=== PATIENT | male | born 1970 | race Caucasian/White ===

== ENCOUNTER 2016-09-30 21:56 | Emergency (ER) | payer SELFPAY ==
[2015-11-28 17:56] VITALS: BP 201/105
[~2016-09-30] VITALS: Ht 182.9 cm; Wt 2.7 kg
[2016-09-30] MEDS ORDERED: TRAM50TA PO (22:25)
[2016-09-30] MEDS ORDERED: IBUP-1060 PO (22:25)
--- NOTE | 2016-09-30 22:26 | PHYS DOC ---
Past Medical History Past Medical History: Hypertension Additional Past Medical Histor: spinal stenosis, bulging disc Past Surgical History: No Surgical History Additional Past Surgical Histo: hernia Alcohol Use: Occasionally Drug Use: Marijuana Adult General Chief Complaint Chief Complaint: KNEE INJURY [facility] HPI Patient is a 46 year old male presents to the emergency department with complaints of right medial knee pain. He states he was in the yard playing with water balloons with his children when he slipped and he describes a valgus stress maneuver. States he had immediate onset of right knee pain. He states he has been ambulatory right lower extremity since incident. Right hip and right ankle exam unremarkable. Review of Systems Review of Systems Constitutional: Denies fever or chills [] Eyes: Denies change in visual acuity, redness, or eye pain [] HENT: Denies nasal congestion or sore throat [] Respiratory: Denies cough or shortness of breath [] Cardiovascular: No additional information not addressed in HPI [] GI: Denies abdominal pain, nausea, vomiting, bloody stools or diarrhea [] : Denies dysuria or hematuria [] Musculoskeletal: Left knee pain Integument: Denies rash or skin lesions [] Neurologic: Denies headache, focal weakness or sensory changes [] Endocrine: Denies polyuria or polydipsia [] Allergies Allergies Allergies Coded Allergies Type Severity Reaction Last Updated Verified No Known Drug Allergies 07/20/14 No Physical Exam Physical Exam Constitutional: Well developed, well nourished, no acute distress, non-toxic appearance. [] Neck: Normal range of motion, no midline or cervical tenderness, supple, no stridor. [] Cardiovascular:Heart rate regular rhythm, no murmur [] Lungs & Thorax: Bilateral breath sounds clear to auscultation [] Skin: Warm, dry, no erythema, no rash. [] Back: No tenderness, no CVA tenderness. [] Extremities: Right lower extremity exam, right hip and left ankle exam unremarkable. Right knee, no swelling, no ecchymosis. He does have tenderness upon pain over the medial collateral ligament. He does have as laxity with valgus stress maneuver. Norvasc intact distally. Neurologic: Alert and oriented X 3, normal motor function, normal sensory function, no focal deficits noted. [] Psychologic: Affect normal, judgement normal, mood normal. [] Current Patient Data Vital Signs Vital Signs Date Time Temp Pulse Resp B/P (MAP) Pulse Ox O2 Delivery O2 Flow Rate FiO2 09/30/16 22:09 98.5 95 18 182/98 (126) 99 Room Air 98.5 EKG EKG [] Radiology/Procedures Radiology/Procedures [] Course & Med Decision Making Course & Med Decision Making Patient declined a plain film x-ray. I did discuss with him the possibility of fracture. He continued to decline having an x-ray done stating that he had no insurance. He reports that he does not plan to follow-up once he leaves the emergency department as he has no access to healthcare. I did discuss with him options for clinics for the [place] and the area, he stated he was familiar with this but still could not utilize those as an option. Patient did decline a pain injection in the emergency department. Plan will be to immobilize the right knee , provide pain medications. Patient will sign out AGAINST MEDICAL ADVICE from the emergency department. Dragon Disclaimer Dragon Disclaimer This electronic medical record was generated, in whole or in part, using a voice recognition dictation system. Departure Departure Impression: Primary Impression: Right knee pain Disposition: 01 HOME, SELF-CARE Condition: STABLE Referrals: NO PCP (PCP) CARRIE MANZANARES MD [facility] [place] Patient Instructions: Knee Immobilization Scripts Ibuprofen (IBUPROFEN) 800 Mg Tablet 800 MG PO PRN Q6HRS Y for INFLAMMATION, #20 TAB Prov: JASON TYLER APRN 09/30/16 Tramadol Hcl (TRAMADOL HCL) 50 Mg Tablet 50 MG PO DAILY Y for PAIN, #20 TAB 0 Refills Prov: JASON TYLER APRN 09/30/16 Problem Qualifiers Primary Impression: Right knee pain Chronicity: acute Qualified Codes: M25.561 - Pain in right knee JASON TYLER APRN Sep 30, 2016 22:26
[2016-09-30] MEDS ORDERED: ACETAMINOPHEN/CODEINE 300/30MG TABLET. PO ONE (22:30)
== END 2016-09-30 23:01 | disposition home or self-care (01) ==
LOC: ER 21:56
DX: M25.561 Pain in right knee (principal); I10 Essential (primary) hypertension; F12.10 Cannabis abuse, uncomplicated; W01.0XXA Fall on same level from slipping, tripping and stumbling without subsequent striking against object, initial encounter; Y93.89 Activity, other specified; Y99.8 Other external cause status; Y92.89 Other specified places as the place of occurrence of the external cause
CPT/HCPCS: 29505; 99283-25

== ENCOUNTER 2019-04-22 15:59 | Emergency (ER) | payer BC ==
[~2019-04-22] VITALS: Ht 182.9 cm; Wt 93.3 kg
[~2019-04-22 15:59] MED LIST: IBUP-1060 PO; TRAM50TA PO
[2019-04-22 16:20] VITALS: BP 221/100
[2019-04-22] MEDS ORDERED: HYDROcodone/APAP 5/325MG 1 TAB TABLET PO ONE (16:45)
[2019-04-22] MEDS ORDERED: PENI500T PO (17:07)
[2019-04-22] MEDS ORDERED: ACET-704 PO (17:07)
[2019-04-22] MEDS ORDERED: NAPR-514 PO (17:07)
--- NOTE | 2019-04-22 17:08 | PHYS DOC ---
Past Medical History Past Medical History: Hypertension, Other Additional Past Medical Histor: spinal stenosis, bulging disc,DDD Additional Past Surgical Histo: hernia Smoking Status: Former Smoker Alcohol Use: Occasionally Drug Use: Marijuana (quit using on 03/07/19) Adult General Chief Complaint Chief Complaint: DENTAL PROBLEM HPI HPI Patient is a 48 year old male who presents to the emergency department with co mplaints of pain in his front right tooth for the last 2 days. He states that 2 days ago he was chewing his fingernails and felt something crunch tooth #8. He states he has previously had a root canal in the same tooth. He denies any fever, facial erythema, neck pain, sore throat, or ear pain. He states that yesterday there was a little bit of swelling in his upper lip, he applied ice to the area of swelling has since receded. He currently rates pain 7 out of 10 on pain scale, the pain increases if he tries to bite down or puts any pressure on the tooth. He denies any alleviating factors. Review of Systems Review of Systems All other ROS is negative unless otherwise noted in HPI. Current Medications Current Medications Current Medications Medications (Trade) Dose Ordered Sig/Gris Start Time Stop Time Status Last Admin Dose Admin Acetaminophen/ Hydrocodone Bitart (Lortab 5/325) 1 tab 1X ONCE 04/22/19 16:45 04/22/19 16:50 DC Allergies Allergies Allergies Coded Allergies Type Severity Reaction Last Updated Verified No Known Drug Allergies 07/20/14 No Physical Exam Physical Exam See Above Constitutional: Well developed, well nourished, no acute distress, non-toxic appearance. [] HENT: Normocephalic, atraumatic, bilateral external ears normal, oropharynx moist, no oral exudates, nose normal; cisneros discoloration and fracture line noted to tooth #8, no gingival erythema or visible abscess. Patient reports that the tooth has been discolored since having a root canal.. [] Eyes: PERRLA, EOMI, conjunctiva normal, no discharge. [] Neck: Normal range of motion, no tenderness, supple, no stridor. [] Cardiovascular:Heart rate regular rhythm Lungs & Thorax: Respirations even and unlabored, no retractions, no respiratory distress Skin: Warm, dry, no erythema, no rash. [] Extremities: No cyanosis, ROM intact Neurologic: Alert and oriented X 3, no focal deficits noted. [] Psychologic: Affect normal, judgement normal, mood normal. [] Current Patient Data Vital Signs Vital Signs Date Time Temp Pulse Resp B/P (MAP) Pulse Ox O2 Delivery O2 Flow Rate FiO2 04/22/19 16:20 98.9 84 17 221/100 (140) 98 Room Air 98.9 EKG EKG [] Radiology/Procedures Radiology/Procedures [] Course & Med Decision Making Course & Med Decision Making Pertinent Labs and Imaging studies reviewed. (See chart for details) [] Dragon Disclaimer Dragon Disclaimer This electronic medical record was generated, in whole or in part, using a voice recognition dictation system. Departure Departure Impression: Primary Impression: Dentalgia Additional Impression: Infection of tooth Disposition: HOME, SELF-CARE Condition: STABLE Referrals: NO PCP (PCP) Patient Instructions: Dental Fracture, Dental Pain, [id number] Additional Instructions: Fill prescription(s) and use as directed. Follow up with dentist using the referral list provided. Return to the ER if symptoms worsen. Scripts Acetaminophen With Codeine (TYLENOL WITH CODEINE #3 TABLET) 1 Each Tablet 1 TAB PO PRN Q6HRS PRN for PAIN for 3 Days, #10 TAB 0 Refills Prov: LISSY LAGOS APRN 04/22/19 Naproxen (NAPROXEN) 500 Mg Tablet 1 TAB PO BID PRN for PAIN for 10 Days, #20 TAB 0 Refills Prov: LISSY LAGOS APRN 04/22/19 Penicillin V Potassium (PENICILLIN V POTASSIUM) 500 Mg Tablet 1 TAB PO QID for 10 Days, #40 TAB 0 Refills Prov: LISSY LAGOS APRN 04/22/19 Problem Qualifiers LISSY LAGOS APRN Apr 22, 2019 17:08
== END 2019-04-22 17:21 | disposition home or self-care (01) ==
LOC: ER 15:59
DX: K04.7 Periapical abscess without sinus (principal); K08.89 Other specified disorders of teeth and supporting structures; I10 Essential (primary) hypertension; F12.90 Cannabis use, unspecified, uncomplicated; F17.200 Nicotine dependence, unspecified, uncomplicated; Z98.890 Other specified postprocedural states
CPT/HCPCS: 99283

== ENCOUNTER 2020-08-03 06:58 | Emergency (ER) | payer SELFPAY ==
[~2020-08-03] VITALS: Ht 182.9 cm; Wt 95.0 kg
[~2020-08-03 06:58] MED LIST changes: +ACET-704 PO; +NAPR-514 PO; +PENI500T PO
[2020-08-03] MEDS: KETOROLAC 60 MG/2 ML VIAL. IM ONE (07:33)
[2020-08-03 07:49] LABS: BILIRUBIN,URINE NEGATIVE (NEG); CLARITY,URINE CLEAR; COLOR,URINE YELLOW; NITRITE,URINE NEGATIVE (NEG); PH,URINE 5.5 (<5.0-8.0); PROTEIN,URINE NEGATIVE (NEG-TRACE); UROBILINOGEN,URINE 0.2 mg/dL (0.2 mg/dL)
[2020-08-03 07:59] LABS: BACTERIA,URINE 0 /HPF (0-FEW); RBC,URINE 0 /HPF (0-2); WBC,URINE 0 /HPF (0-4)
[2020-08-03] MEDS ORDERED: CYCL10TA2 PO (08:00)
[2020-08-03] MEDS ORDERED: LIDO1ADH78 TP (08:00)
--- NOTE | 2020-08-03 08:06 | PHYS DOC ---
Past Medical History Past Medical History: Hypertension, Other Additional Past Medical Histor: spinal stenosis, bulging disc,DDD Past Surgical History: No Surgical History Additional Past Surgical Histo: hernia Smoking Status: Former Smoker Alcohol Use: Occasionally Drug Use: Marijuana General Adult EDM: Chief Complaint: BACK PAIN - NO INJURY HPI: HPI: 49-year-old male past medical history of hypertension hyperlipidemia presents the ED with complaints of left-sided low back pain that has been present for more than 15 years stating he used to follow-up at the [facility] but lost his insurance. Reports he was referred to orthopedic surgery interval in [place] that told him he had osteoarthritis of the neck and the lumbar spine and recommended surgery. Reports he is postop surgery January or February 2020 but that he chickened out. Dates last night when he was in a comedy club back pain flared up on the left side described as sharp and radiates to the buttock and down the left leg. Denies any history of trauma, history of IV drug use, history of cancer, history of sciatica, history of malignancy, history of immunocompromise state, neurologic complaints including saddle anesthesia, weakness or paresthesias, urinary retention, bowel or bladder incontinence, nigh t pain, fever/chills/night sweats, unexplained weight loss, anticoagulants or coagulopathy, prolonged steroid use, older age, presence of contusions or abrasions. Reports he takes Aleve [id number] for pain but that meloxicam works better. Was told to stop meloxicam due to being on Norvasc and statin medication. No known history of renal disease. Review of Systems: Review of Systems: Constitutional: Denies fever or chills. [] Eyes: Denies change in visual acuity. [] HENT: Denies nasal congestion or sore throat. [] Respiratory: Denies cough or shortness of breath. [] Cardiovascular: Denies chest pain or edema. [] GI: Denies abdominal pain, nausea, vomiting, bloody stools or diarrhea. [] : Denies dysuria or hematuria Musculoskeletal: Denies midline back pain or CVA tenderness Integument: Denies rash or diaphoresis Neurologic: Denies headache, focal weakness or sensory changes. [] Endocrine: Denies polyuria or polydipsia. [] Lymphatic: Denies swollen glands. [] Psychiatric: Denies depression or anxiety. [] Heart Score: C/O Chest Pain: No Risk Factors: Risk Factors: DM, Current or recent (<one month) smoker, HTN, HLP, family his tory of CAD, obesity. Risk Scores: Score 0 - 3: 2.5% MACE over next 6 weeks - Discharge Home Score 4 - 6: 20.3% MACE over next 6 weeks - Admit for Clinical Observation Score 7 - 10: 72.7% MACE over next 6 weeks - Early Invasive Strategies Current Medications: Current Medications Medications (Trade) Dose Ordered Sig/Gris Start Time Stop Time Status Last Admin Dose Admin Ketorolac Tromethamine (Toradol Im) 30 mg 1X ONCE 08/03/20 07:30 08/03/20 07:31 DC 08/03/20 07:33 30 MG Allergies: Allergies: Allergies Coded Allergies Type Severity Reaction Last Updated Verified No Known Drug Allergies 07/20/14 No Physical Exam: PE: Constitutional: Well developed, well nourished, no acute distress, non-toxic appearance, thin tall healthy appearing male/in no distress HENT: Normocephalic, atraumatic, Eyes: EOMI, conjunctiva normal, no discharge. Neck: Normal range of motion, supple, Cardiovascular: S1/2 present, regular rhythm Lungs & Thorax: Speaking in full sentences, bilateral equal chest rise, no tachypnea or increased work of breathing Abdomen: soft, no tenderness, Skin: Warm, dry, no erythema, no rash. [] Back: No midline tenderness, no CVA tenderness. [] Extremities: No tenderness, no cyanosis, no lower extremity edema Neurologic: Alert and oriented X 3, normal motor function, normal sensory function, no focal deficits noted. [] Psychologic: Affect normal, judgement normal, mood normal. [] Current Patient Data: Vital Signs: Vital Signs Date Time Temp Pulse Resp B/P (MAP) Pulse Ox O2 Delivery O2 Flow Rate FiO2 08/03/20 07:14 98.3 80 16 168/81 (110) 97 Room Air 98.3 EKG: EKG: [] Radiology/Procedures: Radiology/Procedures: [] Course & Med Decision Making: Course & Med Decision Making Pertinent Labs and Imaging studies reviewed. (See chart for details) Well-appearing male presents the ED with acute on chronic back pain reports pain over left SI joint and describes lumbosacral with left-sided sciatica. Has no neurologic deficits. Will prescribe lidocaine patch and muscle relaxers. Will refer to primary care physician or tremors will forward labs/renal testing. Urinalysis with no hematuria or infection. Will discharge home with strict ED return precautions were given for trauma, saddle anesthesia, urine or bowel retention or incontinence or fever. Encouraged urgent outpatient follow-up with PMD and orthopedic surgery neurosurgery for definitive management. Life- threatening processes were considered but are low suspicion at this time, given history, physical exam and ED workup. Pt was educated on all prescription medications and adverse effects. All patient's questions were answered and pt was stable at time of discharge. Life/limb-threatening differential includes but is not limited to, aortic dissection/aneurysm, cauda equina syndrome, transverse myelitis, spinal cord/epidural compression syndromes, discitis, spinal stenosis, epidural abscess or hematoma, osteomyelitis, disc herniation, surgical abdomen, stable or unstab le fracture, renal/ureteral colic, sepsis, meningitis, musculoskeletal injury, traumatic injury, intraabdominal/retroperitoneal or pelvic bleeding. I spoken with the patient and her caregivers. I explained the patient's condition, diagnoses and treatment plan based on the information available to me at this time. I have answered the patient and her caregiver's questions and addressed any concerns. The patient and her caregivers have a good understanding of patient's diagnosis, condition and treatment plan as can be expected at this point. Vital signs have been stable. Patient's condition is stable and appropriate for discharge from the emergency department. Patient will pursue further outpatient evaluation with primary care physician or other designated or consulting physician as outlined in the discharge instructions. The patient and/or caregivers are agreeable to this plan of care and follow-up instructions have been explained in detail. The patient and/or caregivers have received these instructions in written form and have expressed an understanding of the discharge instructions. The patient and/or caregivers are aware that any significant change of condition or worsening of symptoms should prompt immediate return to this or the closest emergency department or call to 911. Naveen Disclaimer: Naveen Disclaimer: This electronic medical record was generated, in whole or in part, using a voice recognition dictation system. Departure Departure Impression: Primary Impression: Chronic low back pain Additional Impression: Sacroiliac joint dysfunction of left side Disposition: HOME / SELF CARE / HOMELESS Condition: STABLE Referrals: NO PCP (PCP) follow up with your pcp or FOLLOW UP WITH FAMILY MEDICINE: [address] [place] [address] Patient Instructions: Back Pain, Adult, Sacroiliac Joint Dysfunction Additional Instructions: FOLLOW UP WITH ORTHOPEDICS: For definitive back management Orthopaedic Sports Medicine [facility] [address], [address] [place] [address] OR [facility] [address] [place] [address] OR FOLLOW UP WITH NEUROSURGERY: Neurological Surgery [facility] [address], [address] [place] [address] EMERGENCY DEPARTMENT GENERAL DISCHARGE INSTRUCTIONS Thank you for coming to [facility] Emergency Department (ED) today and trusting us with you care. We trust that you had a positive experience in our Emergency Department. If you wish to speak to the department management, you may call the Director at [phone]. YOUR FOLLOW UP INSTRUCTIONS ARE FOLLOWS: 1. Do you have a private Doctor? If you do not have a private doctor, please ask for a resource list of physicians or clinics that may be able to assist you with follow up care. 2. The Emergency Physicain has interpreted your x-rays. The X-Ray specialist will also review them. If there is a change in the findings, you will be notified in 48 hours when at all possible. 3. A lab test or culture has been done, your results will be reviewed and you will be notified if you need a change in treatment. ADDITIONAL INSTRUCTIONS AND INFORMATION: 1. Your care today has been supervised by a physician who is specially trained in emergency care. Many problems require more than one evaluation for a complete diagnosis and treatment. We recommend that you schedule your follow up appointment as recommended to ensure complete treatment of you illness or injury. If you are unable to obtain follow up care and continue to have a problem, or if your condition worsens, we recommend that you return to the ED. 2. We are not able to safely determine your condition over the phone nor are we able to give sound medical advice over the phone. For these safety reasons, if you call for medical advice we will ask you to come to the ED for further evaluation. 3. If you have any questions regarding these discharge instructions please call the ED at [phone]. SAFETY INFORMATION: In the interest of safety, wellness, and injury prevention; we encourage you to wear your sealbelt, if you smoke; quite smoking, and we encourage family to use a protective helmet for bicycling and other sporting events that present an increased risk for head injury. IF YOUR SYMPTOMS WORSEN OR NEW SYMPTOMS DEVELOP, OR YOU HAVE CONCERNS ABOUT YOUR CONDITION; OR IF YOUR CONDITION WORSENS WHILE YOU ARE WAITING FOR YOUR FOLLOW UP APPOINTME NT; EITHER CONTACT YOUR PRIMARY CARE DOCTOR, THE PHYSICIAN WHOSE NAME AND NUMBER YOU WERE GIVEN, OR RETURN TO THE ED IMMEDIATELY. Scripts Cyclobenzaprine Hcl (CYCLOBENZAPRINE HCL) 10 Mg Tablet 1 TAB PO TID, #21 TAB Prov: DAVONTE ROMO DO 08/03/20 Lidocaine (Lido Tim) 1 Each Adh..patch 1 EACH TP DAILY for 5 Days, #5 PATCH Apply 1 patch for 12 hours, remove for another 12 hours. May repeat, 1 patch per day as instructed above. Prov: DAVONTE ROMO DO 08/03/20 DAVONTE ROMO DO August 03, 2020 08:06
[2020-08-03 08:15] VITALS: BP 165/81
== END 2020-08-03 08:16 | disposition home or self-care (01) ==
LOC: ER 06:58
DX: G89.29 Other chronic pain (principal); M54.5 Low back pain; M53.3 Sacrococcygeal disorders, not elsewhere classified; I10 Essential (primary) hypertension; Z87.891 Personal history of nicotine dependence
CPT/HCPCS: 81001; 96372; 99283; J1885

== ENCOUNTER 2020-11-19 07:08 | Emergency (ER) | payer SELFPAY ==
[~2020-11-19] VITALS: Ht 182.9 cm; Wt 94.8 kg
[~2020-11-19 07:08] MED LIST changes: +CYCL10TA2 PO; +LIDO1ADH78 TP
[2020-11-19] MEDS ORDERED: PIPERACILLIN/TAZOBACTAM 3.375 GM in IV NORMAL SALINE 50ML 50 ML IV ONE (08:00)
[2020-11-19] MEDS ORDERED: DIPH,PERTUSS(ACELL),TET VAC/PF 0.5 ML SYRINGE. VAX IM ONE (08:00)
[2020-11-19 08:10] LABS: BASO # 0.1 x10^3/uL (0.0-0.2); BASO % 1 % (0-3); EOS # 0.2 x10^3/uL (0.0-0.7); EOS % 2 % (0-3); HEMATOCRIT 46.6 % (39.0-53.0); HEMOGLOBIN 16.3 g/dL (13.0-17.5); LYMPH # 2.4 x10^3/uL (1.0-4.8); LYMPH % 22 % (24-48); MEAN CORPUSCULAR HEMOGLOBIN 30 pg (25-35); MEAN CORPUSCULAR HGB CONC 35 g/dL (31-37); MEAN CORPUSCULAR VOLUME 87 fL (79-100); MONO # 0.9 x10^3/uL (0.0-1.1); MONO % 8 % (0-9); NEUT # 7.4 x10^3/uL (1.8-7.7); NEUT % 67 % (31-73); PLATELET COUNT 186 x10^3/uL (140-400); RED BLOOD COUNT 5.39 x10^6/uL (4.30-5.70); RED CELL DISTRIBUTION WIDTH 12.9 % (11.5-14.5)
--- NOTE | 2020-11-19 08:42 | RAD ---
EXAM: Left hand, 3 views. HISTORY: Trauma. COMPARISON: 03/28/2015. FINDINGS: 3 views of the left hand are obtained. There is no acute fracture, dislocation or subluxati on. No radiodense foreign body is seen. There are suspected small cyst within the distal scaphoid. Th ere is a chronic corticated ossicle at the base of the first metacarpal. IMPRESSION: No acute osseous finding. Electronically signed by: Lyla Desir MD (11/19/2020 8:40 AM) [id number]
--- NOTE | 2020-11-19 08:45 | PHYS DOC ---
Past Medical History Past Medical History: Hypertension, Other Additional Past Medical Histor: spinal stenosis, bulging disc,DDD Past Surgical History: No Surgical History Additional Past Surgical Histo: hernia Smoking Status: Never Smoker Alcohol Use: Rarely Drug Use: Marijuana General Adult EDM: Chief Complaint: HAND PROBLEM HPI: HPI: Patient is a 50 year old male who present to ER for evaluation of a wound on his left hand that he sustained 5 days ago. Patient said he was taking out the trash, put his hand through trash bag and cut it left hand with some sheet metal on last Tuesday. Patient says he has been cleaning the wound, did not seek any medical attention until when he woke up this morning he noticed more pain and swollen at the injured area. Patient is not up-to-date on his tetanus status. Patient denies any fever. Patient complained of pain when he tried to close or open his left index finger. Review of Systems: Review of Systems: Constitutional: Denies fever or chills. [] Eyes: Denies change in visual acuity. [] HENT: Denies nasal congestion or sore throat. [] Respiratory: Denies cough or shortness of breath. [] Cardiovascular: Denies chest pain or edema. [] GI: Denies abdominal pain, nausea, vomiting, bloody stools or diarrhea. [] : Denies dysuria. [] Musculoskeletal: Denies back pain or joint pain. [] Integument: positive for a wound on left hand at the left index finger at the MCP JOINT. Neurologic: Denies headache, focal weakness or sensory changes. [] Endocrine: Denies polyuria or polydipsia. [] Lymphatic: Denies swollen glands. [] Psychiatric: Denies depression or anxiety. [] Heart Score: C/O Chest Pain: N/A Risk Factors: Risk Factors: DM, Current or recent (<one month) smoker, HTN, HLP, family history of CAD, obesity. Risk Scores: Score 0 - 3: 2.5% MACE over next 6 weeks - Discharge Home Score 4 - 6: 20.3% MACE over next 6 weeks - Admit for Clinical Observation Score 7 - 10: 72.7% MACE over next 6 weeks - Early Invasive Strategies Current Medications: Current Medications Medications (Trade) Dose Ordered Sig/Gris Start Time Stop Time Status Last Admin Dose Admin Diphtheria/ Tetanus/Acell Pertussis (ADACEL TDap SYRINGE) 0.5 ml ONCE ONCE 11/19/20 08:00 11/19/20 08:01 DC 11/19/20 08:23 0.5 ML Piperacillin Sod/ Tazobactam Sod 3.375 gm/Sodium Chloride 50 ml @ 100 mls/hr 1X ONCE 11/19/20 08:00 11/19/20 08:30 DC 11/19/20 08:33 100 MLS/HR Allergies: Allergies: Allergies Coded Allergies Type Severity Reaction Last Updated Verified No Known Drug Allergies 07/20/14 No Physical Exam: PE: Constitutional: Well developed, well nourished, no acute distress, non-toxic appearance. [] HENT: Normocephalic, atraumatic, bilateral external ears normal, oropharynx moist, no oral exudates, nose normal. [] Eyes: PERRLA, EOMI, conjunctiva normal, no discharge. [] Neck: Normal range of motion, no tenderness, supple, no stridor. [] Cardiovascular:Heart rate regular rhythm, no murmur [] Lungs & Thorax: Bilateral breath sounds clear to auscultation [] Abdomen: Bowel sounds normal, soft, no tenderness, no masses, no pulsatile masses. [] Skin: Warm, dry, THERE IS 1.5 CM SUPERFICIAL LACERATION AT THE MCP JOINT OF LEFT INDEX FINGER ON THE DORSAL SURFACE. NO PURULENT DRAINAGE WHEN THE WOUND WAS EXPRESSED. Back: No tenderness, no CVA tenderness. [] Extremities: THERE IS SOME MILD SWELLING OF LEFT INDEX FINGER AT THE MCP joint with some erythema, patient can flex and extend left index finger without any problem. Neurologic: Alert and oriented X 3, normal motor function, normal sensory function, no focal deficits noted. [] Psychologic: Affect normal, judgement normal, mood normal. [] Current Patient Data: Labs: Laboratory Tests Test 11/19/20 07:59 White Blood Count 11.0 x10^3/uL (4.0-11.0) Red Blood Count 5.39 x10^6/uL (4.30-5.70) Hemoglobin 16.3 g/dL (13.0-17.5) Hematocrit 46.6 % (39.0-53.0) Mean Corpuscular Volume 87 fL (79-100) Mean Corpuscular Hemoglobin 30 pg (25-35) Mean Corpuscular Hemoglobin Concent 35 g/dL (31-37) Red Cell Distribution Width 12.9 % (11.5-14.5) Platelet Count 186 x10^3/uL (140-400) Neutrophils (%) (Auto) 67 % (31-73) Lymphocytes (%) (Auto) 22 % (24-48) L Monocytes (%) (Auto) 8 % (0-9) Eosinophils (%) (Auto) 2 % (0-3) Basophils (%) (Auto) 1 % (0-3) Neutrophils # (Auto) 7.4 x10^3/uL (1.8-7.7) Lymphocytes # (Auto) 2.4 x10^3/uL (1.0-4.8) Monocytes # (Auto) 0.9 x10^3/uL (0.0-1.1) Eosinophils # (Auto) 0.2 x10^3/uL (0.0-0.7) Basophils # (Auto) 0.1 x10^3/uL (0.0-0.2) Laboratory Tests 11/19/20 07:59 Vital Signs: Vital Signs Date Time Temp Pulse Resp B/P (MAP) Pulse Ox O2 Delivery O2 Flow Rate FiO2 11/19/20 07:31 98.4 73 16 181/88 (119) 96 Room Air 98.4 EKG: EKG: [] Radiology/Procedures: Radiology/Procedures: [][facility] [address] [place] [address] IMAGING REPORT Signed PATIENT: JOHNNIE GARCIA ACCOUNT: [id number] : 1970 LOCATION: ER AGE: 50 SEX: M EXAM STATUS: REG ER ORD. PHYSICIAN: ROSI CASTELLANOS DO REASON: injured left hand at MCP joint of left 2nd finger last Tuesday PROCEDURE: HAND LEFT 3V EXAM: Left hand, 3 views. HISTORY: Trauma. COMPARISON: 03/28/2015. FINDINGS: 3 views of the left hand are obtained. There is no acute fracture, dislocation or subluxation. No radiodense foreign body is seen. There are suspected small cyst within the distal scaphoid. There is a chronic corticated ossicle at the base of the first metacarpal. IMPRESSION: No acute osseous finding. Electronically signed by: Lyla Clarke MD (11/19/2020 8:40 AM) [id number] DICTATED and SIGNED BY: LYLA CLARKE MD DATE: 11/19/20 [id number] 0 Course & Med Decision Making: Course & Med Decision Making Pertinent Labs and Imaging studies reviewed. (See chart for details) Patient is a 50-year-old male who sustained a cut on his left index finger at the MCP joint 5 days ago. Patient now feels had an infection in the area, consi stent with cellulitis, no purulent drainage, patient can flex and extend his left index finger without a problem. There is no evidence of flexor tenosynovitis. Patient was given IV Zosyn in the ER, and a tetanus booster. Patient will discharge home with a combination of Keflex and Bactrim DS. Luís downing was recommended to follow-up with a hand doctor in a couple days for reevaluation. Patient was amenable to plan of care. Dragon Disclaimer: Dragon Disclaimer: This electronic medical record was generated, in whole or in part, using a voice recognition dictation system. Departure Departure Impression: Primary Impression: Cellulitis of left hand Disposition: 01 HOME / SELF CARE / HOMELESS Condition: STABLE Referrals: NO PCP (PCP) Please call [facility] for follow up with the hand surgeon, Dr. Jordi Arredondo or Dr. Jordan within 5 days. The phone number is [phone]. Patient Instructions: Cellulitis, VIS, Tetanus, Diphtheria (Td); Tetanus, Diphtheria, Pertussis (Tdap) - CDC Additional Instructions: Thank you for visiting our Emergency Department. We appreciate you trusting us with your care. If any additional problems come up don't hesitate to return to visit us. Please follow up with your primary care provider so they can plan ad ditional care if needed and know about the problem that you had. If symptoms worsen come back to the Emergency Department. Any concerning symptoms that start such as chest pain, shortness of air, weakness or numbness on one side of the body, running high fevers or any other concerning symptoms return to the ER. Scripts Sulfamethoxazole/Trimethoprim (BACTRIM DS TABLET) 1 Each Tablet 1 TAB PO BID for 10 Days, #20 TAB 0 Refills Prov: ROSI CASTELLANOS DO 11/19/20 Cephalexin (CEPHALEXIN) 500 Mg Tablet 1 TAB PO QID for 10 Days, #40 TAB Prov: ROSI CASTELLANOS DO 11/19/20 ROSI CASTELLANOS DO Nov 19, 2020 08:45
[2020-11-19 08:56] LABS: ALBUMIN 3.9 g/dL (3.4-5.0); ALBUMIN/GLOBULIN RATIO 1.1 (1.0-1.7); CALCIUM 9.3 mg/dL (8.5-10.1); CREATININE 0.9 mg/dL (0.7-1.3); GFR 88.6; POTASSIUM 4.1 mmol/L (3.5-5.1); TOTAL BILIRUBIN 0.8 mg/dL (0.2-1.0); TOTAL PROTEIN 7.5 g/dL (6.4-8.2)
[2020-11-19] MEDS ORDERED: KETOROLAC 30 MG/ML VIAL. IVP ONE (09:00)
[2020-11-19] MEDS ORDERED: CEPH500T PO (10:22)
[2020-11-19] MEDS ORDERED: SULF1TAB24 PO (10:22)
[2020-11-19 10:35] VITALS: BP 143/73
== END 2020-11-19 10:38 | disposition home or self-care (01) ==
LOC: ER 07:08
DX: L03.114 Cellulitis of left upper limb (principal); I10 Essential (primary) hypertension
CPT/HCPCS: 36415; 73130; 80053; 85025; 90471; 90715; 96365; 96375; 99284; J1885; J2543